=== PATIENT | male | born 1970 | race Caucasian/White ===

== ENCOUNTER 2020-09-18 19:49 | Emergency (ER) | payer OTHER ==
[~2020-09-18] VITALS: Ht 193 cm; Wt 104.3 kg
[2020-09-18] MEDS ORDERED: IBUPROFEN 800800 M1 PO (20:52)
[2020-09-18] MEDS ORDERED: NORCO 5-325 TA1 EAC2 PO (21:04)
[2020-09-18 21:10] VITALS: BP 132/78
== END 2020-09-18 21:10 | disposition home or self-care (01) ==
LOC: M.ERS 19:49
DX: M70.52 Other bursitis of knee, left knee (principal); F17.210 Nicotine dependence, cigarettes, uncomplicated; Y93.89 Activity, other specified

== ENCOUNTER 2020-11-21 14:49 | Emergency (ER) | payer OTHER ==
[~2020-11-21] VITALS: Ht 193 cm; Wt 101.6 kg
[~2020-11-21 14:49] MED LIST: IBUPROFEN 800800 M1 PO; NORCO 5-325 TA1 EAC2 PO
[2020-11-21 15:47] LABS: ABSOLUTE BASOPHILS 0.1 thou/uL (0.0-0.2); ABSOLUTE EOSINOPHILS 0.3 thou/uL (0.0-0.7); ABSOLUTE LYMPHOCYTES 2.6 thou/uL (0.8-5.3); ABSOLUTE MONOCYTES 1.2 thou/uL (0.0-1.2); ABSOLUTE NEUTROPHILS 8.3 thou/uL (1.6-8.1); BASOPHILS 0.6 %; EOSINOPHILS 2.3 %; HEMATOCRIT 46.8 % (42.0-52.0); LYMPHOCYTES 20.6 %; MCH 30.9 pg (26.0-34.0); MCHC 34.2 g/dL (28.0-37.0); MCV 90.3 fL (80.0-100.0); MONOCYTES 9.9 %; MPV 7.3 fl. (7.2-11.1); NUCLEATED RBCS 0 /100WBC; PLATELET COUNT* 300 thou/uL (150-400); POLYS 66.6 %; RBC 5.18 mil/uL (4.50-6.00); RDW-CV 13.9 % (10.5-14.5); WBC 12.5 thou/uL (4.0-11.0)
[2020-11-21 15:55] LABS: CALCIUM 8.7 mg/dL (8.5-10.1); POTASSIUM 4.4 mmol/L (3.5-5.1)
[2020-11-21 16:00] LABS: ALBUMIN 3.3 g/dL (3.4-5.0); TOTAL BILIRUBIN 0.1 mg/dL (<0.1-1.0); TOTAL PROTEIN 6.7 g/dL (6.4-8.2)
[2020-11-21 16:52] LABS: ESR (SEDRATE) 3 mm/hr (0-15)
[2020-11-21] MEDS ORDERED: NORCO 5-325 TA1 EAC2 PO (17:08)
[2020-11-21] MEDS ORDERED: IBUPROFEN 800800 M1 PO (17:08)
[2020-11-21 17:28] VITALS: BP 140/72
== END 2020-11-21 17:30 | disposition home or self-care (01) ==
LOC: M.ERS 14:49
PROVIDERS: Nurse Practitioner Family
DX: G89.18 Other acute postprocedural pain (principal); M25.562 Pain in left knee; R60.0 Localized edema